=== PATIENT | male | born 1960 | race Two or more races ===

== ENCOUNTER 2017-11-17 10:45 | Emergency (ER) | payer MEDICAID ==
[~2017-11-17] VITALS: Ht 177.8 cm; Wt 81.6 kg
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
[2017-11-17 11:20] VITALS: BP 130/80
[2017-11-17 12:00] LABS: BASOPHILS % (AUTO) 1.2 % (0.0-2.0); EOSINOPHILS % (AUTO) 1.4 % (0.0-3.0); HEMOGLOBIN 13.3 G/DL (14.2-18.0); LYMPHOCYTES % (AUTO) 22.9 % (20.0-45.0); MEAN CORPUSCULAR VOLUME 83 FL (80-99); MONOCYTES % (AUTO) 10.2 % (1.0-10.0); NEUTROPHILS % (AUTO) 64.3 % (45.0-75.0); PLATELET COUNT 218 K/UL (150-450); RED BLOOD COUNT 4.79 M/UL (4.70-6.10); RED CELL DISTRIBUTION WIDTH 12.3 % (11.6-14.8); WHITE BLOOD COUNT 9.4 K/UL (4.8-10.8)
[2017-11-17 12:09] LABS: ANION GAP 11 mmol/L (5-15); BLOOD UREA NITROGEN 19 mg/dL (7-18); CALCIUM 8.9 MG/DL (8.5-10.1); CARBON DIOXIDE 29 MMOL/L (21-32); CHLORIDE 99 MMOL/L (98-107); CREATININE 1.9 MG/DL (0.55-1.30); POTASSIUM 3.3 MMOL/L (3.5-5.1); SODIUM 138 MMOL/L (136-145)
[2017-11-17 12:15] LABS: ALANINE AMINOTRANSFERASE 47 U/L (12-78); ALBUMIN 3.9 G/DL (3.4-5.0); ALKALINE PHOSPHATASE 76 U/L (46-116); ASPARTATE AMINO TRANSFERASE 19 U/L (15-37); BILIRUBIN,TOTAL 0.7 MG/DL (0.2-1.0)
[2017-11-17] MEDS ORDERED: QUETIAPINE FUM100 MG ORAL (14:35)
[2017-11-17 16:30] VITALS: BP 156/80
[2017-11-17 17:27] LABS: ANION GAP 10 mmol/L (5-15); BLOOD UREA NITROGEN 19 mg/dL (7-18); CALCIUM 8.9 MG/DL (8.5-10.1); CARBON DIOXIDE 29 MMOL/L (21-32); CHLORIDE 97 MMOL/L (98-107); CREATININE 1.7 MG/DL (0.55-1.30); POTASSIUM 3.8 MMOL/L (3.5-5.1); SODIUM 135 MMOL/L (136-145)
[2017-11-17 17:32] LABS: ALANINE AMINOTRANSFERASE 46 U/L (12-78); ALBUMIN 3.9 G/DL (3.4-5.0); ALKALINE PHOSPHATASE 79 U/L (46-116); ASPARTATE AMINO TRANSFERASE 18 U/L (15-37); BILIRUBIN,TOTAL 0.7 MG/DL (0.2-1.0)
[2017-11-17 18:36] VITALS: BP 132/80
[2017-11-17 23:00] VITALS: BP 130/80
[2017-11-18 03:00] VITALS: BP 141/82
[2017-11-18 07:00] VITALS: BP 128/77
[2017-11-18 11:38] VITALS: BP 130/78
[2017-11-18 15:57] VITALS: BP 134/78
[2017-11-18 18:29] VITALS: BP 153/94
[2017-11-18] MEDS ORDERED: KEFLEX500 MG ORAL (20:07)
[2017-11-18] MEDS ORDERED: Tetanus-Diphtheria Toxoid 0.5ml IM ONE (20:15)
[2017-11-18] MEDS ORDERED: Cephalexin 500mg cap ORAL ONE (20:15)
[2017-11-18] MEDS ORDERED: Tetanus/Diptheria/Pertussis Vaccine 0.5ml Syr IM ONE (20:45)
--- NOTE | 2017-11-18 22:49 | Consultation ---
History of Present Illness General Date patient seen: Nov 17, 2017 Chief Complaint: Behavioral Complaint Present Illness HPI 57-year-old male brought in by [employer] and EMS with suicide attempt by cutting right-sided neck. the cut was not deep however the pt endorses depressive sxs including SI. the pt min verbal Allergies: Coded Allergies: No Known Allergies (Unverified , 11/17/17) Medication History Scheduled Cephalexin* (Keflex*), 500 MG ORAL EVERY 6 HOURS Quetiapine Fumarate* (Seroquel*), 100 MG ORAL BEDTIME, (Reported) Patient History History Provided By: Patient Healthcare decision maker Resuscitation status Advanced Directive on File Past Medical/Surgical History Past Medical/Surgical History: (1) SUSANA (acute kidney injury) (2) Suicidal ideation (3) Behavioral change Review of Systems Psychiatric: Reports: prior hx, anxiety Physical Exam General Appearance: no apparent distress, alert Neurologic: oriented x 3, responsive, depressed affect Last 24 Hour Vital Signs Date Time Temp Pulse Resp B/P (MAP) Pulse Ox O2 Delivery O2 Flow Rate FiO2 11/18/17 18:29 96.1 89 18 153/94 97 Room Air 96.1 82 11/18/17 15:57 97.0 82 16 134/78 95 Room Air 97.0 84 11/18/17 11:38 97.0 84 14 130/78 97 Room Air 97.0 11/18/17 07:00 90 16 128/77 99 Room Air 11/18/17 03:00 85 16 141/82 99 Room Air 11/17/17 23:00 80 16 130/80 100 Room Air Intake and Output 11/17/17 11/18/17 19:00 07:00 Intake Total 1240 ml Balance 1240 ml Intake Oral 1240 ml Height (Feet): 5 Height (Inches): 10.00 Weight (Pounds): 180 Assessment/Plan Status: stable Assessment/Plan mdd dts the pt will be cont on 5150 transfer to Noemi Rodriguez M.D. Nov 18, 2017 22:49
--- NOTE | 2017-11-18 22:52 | General Progress Note ---
Assessment/Plan Status: unchanged Assessment/Plan mdd cont 5150 start lexapro 10mg qam Subjective Date patient seen: Nov 18, 2017 Neurologic/Psychiatric: Reports: anxiety, depressed, emotional problems Allergies: Coded Allergies: No Known Allergies (Unverified , 11/17/17) Subjective min verbal ms not changed however denied si today and asked to call his Objective Last 24 Hour Vital Signs Date Time Temp Pulse Resp B/P (MAP) Pulse Ox O2 Delivery O2 Flow Rate FiO2 11/18/17 18:29 96.1 89 18 153/94 97 Room Air 96.1 82 11/18/17 15:57 97.0 82 16 134/78 95 Room Air 97.0 84 11/18/17 11:38 97.0 84 14 130/78 97 Room Air 97.0 11/18/17 07:00 90 16 128/77 99 Room Air 11/18/17 03:00 85 16 141/82 99 Room Air 11/17/17 23:00 80 16 130/80 100 Room Air Intake and Output 11/17/17 11/18/17 19:00 07:00 Intake Total 1240 ml Balance 1240 ml Intake Oral 1240 ml Height (Feet): 5 Height (Inches): 10.00 Weight (Pounds): 180 General Appearance: no apparent distress, alert Neurologic: alert, oriented x 3, responsive, depressed affect Noemi Caro M.D. Nov 18, 2017 22:51
[2017-11-19 07:10] VITALS: BP 149/97
[2017-11-19] MEDS: Cephalexin 500mg cap ORAL SCH ×4 (09:30→17:58)
[2017-11-19 16:00] VITALS: BP 133/88
[2017-11-19] MEDS ORDERED: LORazepam 1mg tab ORAL ONE (18:15)
[2017-11-19] MEDS ORDERED: cloNIDine 0.2mg Tab ORAL ONE (19:30)
[2017-11-19 20:00] VITALS: BP 159/96
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
== END 2017-11-19 20:00 ==
LOC: EDBD 10:45 → EMR 10:59 → EDBEDREQ 11-18 18:17 → EMR 11-19 20:00
DX: F91.9 Conduct disorder, unspecified (principal); S11.91XA Laceration without foreign body of unspecified part of neck, initial encounter; X78.9XXA Intentional self-harm by unspecified sharp object, initial encounter; Y92.59 Other trade areas as the place of occurrence of the external cause; N17.9 Acute kidney failure, unspecified; Z23 Encounter for immunization; F41.9 Anxiety disorder, unspecified; F32.9 Major depressive disorder, single episode, unspecified; E11.9 Type 2 diabetes mellitus without complications
CPT/HCPCS: 36415; 80053; 80307; 80329; 85025; 90471; 90714; 96372; 99285